=== PATIENT | male | born 1970 | race African-American/Black ===

== ENCOUNTER 2017-08-20 15:59 | Inpatient (IN) | payer MEDICARE, OTHER ==
[~2017-08-20] VITALS: Ht 190.5 cm; Wt 123.0 kg
[2017-08-20] MEDS ORDERED: LEVOFLOXACIN 500MG 100 ML IV ONE (16:30)
[2017-08-20] MEDS ORDERED: DILTIAZEM HCL 25 MG/5 ML VIAL IV ONE (16:42)
[2017-08-20 17:15] LABS: Basophils # (auto) 0 uL; Basophils % (auto) 0.1 % (0.0-2.0); Eosinophils # (auto) 0 uL; Hematocrit 29.8 % (41.0-53.0); Hemoglobin 9.4 g/dL (13.5-17.5); Lymphocytes # (auto) 0.5 uL; Lymphocytes % (auto) 11.2 % (10.0-50.0); Mean Corpuscular Hemoglobin 29.2 pg (28.0-32.0); Mean Corpuscular Hgb Conc. 31.6 g/dL (32.0-36.0); Mean Corpuscular Volume 92.5 fL (80.0-100.0); Monocytes # (auto) 0.4 uL; Monocytes % (auto) 9.1 % (0.0-12.0); Neutrophils # (auto) 3.5 uL; Neutrophils % (auto) 79.6 % (37.0-80.0); Nucleated Red Blood Cells % 2.4 %; Platelet Count (auto) 171 10^3/uL (140-450); Red Blood Cells 3.22 10^6/uL (4.5-5.90); White Blood Cell 4.4 10^3/uL (4.4-10.8)
[2017-08-20] MEDS ORDERED: HYDROmorphone HCL 2 MG/ML VL IV ONE (17:30)
[2017-08-20] MEDS ORDERED: ONDANSETRON HCL 4 MG/2 ML VIAL IV ONE (17:30)
[2017-08-20 17:32] LABS: Albumin 1.8 g/dL (3.4-5.0); BUN/Creatinine Ratio 26.1; Calcium 8.3 mg/dL (8.5-10.1); Magnesium 1.5 mg/dL (1.6-2.6)
[2017-08-20 17:35] LABS: Lactic Acid w/Reflex 7.1 mmol/L (0.4-2.0)
[2017-08-20 17:39] LABS: Bilirubin, Total 0.5 mg/dL (0.2-1.0); Total Protein 4.8 g/dL (6.4-8.2)
[2017-08-20] MEDS ORDERED: SODIUM BICARBONATE 8.4% INJ 50ML SYRINGE ONE (17:50)
[2017-08-20] MEDS ORDERED: DEXTROSE 50% SYRINGE 50 ML IV ONE (17:50)
[2017-08-20] MEDS ORDERED: InsuLIN REG 1unit/0.01ml Soln (100units/ml) IV ONE (18:00)
[2017-08-20] MEDS ORDERED: CALCIUM GLUC 4.65meq/50ml D5AE 50 ML IV ONE (18:00)
[2017-08-20] MEDS ORDERED: DEXTROSE (50%) 50ML SYRG IV ONE (18:00)
[2017-08-20] MEDS ORDERED: SODIUM BICARBONATE 8.4 % INJ 50ML VIAL IV ONE (18:00)
[2017-08-20 18:06] LABS: INR 1.08 (0.9-1.15); Prothrombin Time 11.8 sec (9.37-12.3)
[2017-08-20] MEDS ORDERED: ETOMIDATE (2MG/ML) 20ML VIAL IV ONE ×2 (18:15→18:16)
[2017-08-20] MEDS ORDERED: SUCCINYLCHOLINE CHLORIDE 20 MG/ML 10ML VIAL IV ONE ×2 (18:15→18:16)
[2017-08-20] MEDS ORDERED: PROPOFOL 100 ML IV ONE (18:16)
[2017-08-20] MEDS: PROPOFOL 100 ML IV SCH ×2 (18:25→20:32)
[2017-08-20] MEDS ORDERED: SODIUM CHLORIDE 0.9% 1,000 ML IV ONE (18:30)
[2017-08-20] MEDS: fentaNYL Drip 2500mCg/250mlNS 250 ML IV SCH (19:20)
[2017-08-20] MEDS ORDERED: fentaNYL Drip 2500mCg/250mlNS 250 ML IV ONE (19:23)
[2017-08-20] MEDS ORDERED: NOREPINEPHRINE 8 MG/250ML KIT 250 ML IV ONE (19:25)
[2017-08-20] MEDS ORDERED: ACETAMINOPHEN 650 mg PER 20 mL UD GT ONE (19:30)
[2017-08-20] MEDS ORDERED: ONDANSETRON HCL 4 MG/2 ML VIAL IV PRN (19:45)
[2017-08-20] MEDS ORDERED: PIPERACILLIN-TAZOB 3.375GM 50 ML IV ONE (19:45)
[2017-08-20] MEDS ORDERED: PROPOFOL 10 MG/ML 20 ML IV ONE (19:45)
[2017-08-20] MEDS ORDERED: MORPHINE SULF INJ 2 MG/ML SYRINGE 1ML IV PRN ×2 (19:45)
[2017-08-20] MEDS ORDERED: NITROGLYCERIN 0.4 MG SL TAB SL PRN (19:45)
[2017-08-20] MEDS ORDERED: VANCOMYCIN PER PHARMACY 0 MG IV SCH (19:45)
[2017-08-20] MEDS: NOREPINEPHRINE 8 MG/250ML KIT 250 ML IV SCH (19:47)
[2017-08-20] MEDS: SODIUM CHLORIDE 0.9% 1,000 ML IV SCH (20:00)
[2017-08-20 20:23] VITALS: BP 100/56
[2017-08-20] MEDS ORDERED: LEVOFLOXACIN 750MG 150 ML IV ONE (20:45)
[2017-08-20] MEDS ORDERED: VANCOMYCIN 1GM/250ML 250 ML IV ONE (20:45)
[2017-08-20] MEDS: MAGNESIUM SULFATE 1GM/100ML 100 ML IV SCH ×4 (20:47→23:00)
[2017-08-20] MEDS: ENOXAPARIN SOD 120 MG/0.8 ML SYRINGE SC SCH (20:47)
[2017-08-20 20:59] LABS: CRP High Sensitivity 10.6 mg/dL (< 0.3)
[2017-08-20] MEDS: ASPirin 81 mg TAB NG SCH (23:53)
[2017-08-21] VITALS (11 sets, daily range): BP systolic 90–110; BP diastolic 53–70
[2017-08-21 00:48] LABS: Amphetamine Screen, Urine NEGATIVE (NEGATIVE); Barbiturate Scree,Urine NEGATIVE (NEGATIVE); Cannabinoid Screen, Urine NEGATIVE (NEGATIVE); Cocaine Screen, Urine NEGATIVE (NEGATIVE); Opiate Scree,Urine POSITIVE (NEGATIVE); Phencyclidine Screen, Urine NEGATIVE (NEGATIVE)
[2017-08-21 00:49] LABS: Urine Bacteria MANY /hpf (None Seen); Urine Blood 3+ /uL (Negative); Urine Hyaline Cast FEW /lpf (0 - 2); Urine Mucus FEW (None Seen); Urine Specific Gravity 1.014 (1.001-1.035); Urine WBC 28 /hpf (0 - 3)
[2017-08-21 00:56] LABS: Benzodiazephine Screen, Urine NEGATIVE (NEGATIVE)
[2017-08-21 01:06] LABS: Hemoglobin 9.4 g/dL (13.5-17.5)
[2017-08-21 01:07] LABS: Hematocrit 29.6 % (41.0-53.0); Mean Corpuscular Hemoglobin 29.8 pg (28.0-32.0); Mean Corpuscular Hgb Conc. 31.6 g/dL (32.0-36.0); Mean Corpuscular Volume 94.4 fL (80.0-100.0); Platelet Count (auto) 139 10^3/uL (140-450); Red Blood Cells 3.14 10^6/uL (4.5-5.90)
[2017-08-21 01:14] LABS: Red Cell Distribution Width 23.8 % (11.8-14.3); White Blood Cell 1.1 10^3/uL (4.4-10.8)
[2017-08-21 01:27] LABS: Albumin 1.4 g/dL (3.4-5.0); BUN/Creatinine Ratio 22.5; Calcium 7.7 mg/dL (8.5-10.1)
[2017-08-21 01:30] LABS: Total Protein 4.5 g/dL (6.4-8.2)
[2017-08-21] MEDS ORDERED: VASOPRESSIN 20 UNIT/ML ONE (02:44)
[2017-08-21] MEDS: VASOPRESSIN 50 UNITS in D5W 5% 247.5 ML IV SCH ×2 (03:00→23:00)
[2017-08-21 03:25] LABS: Basophils % (manual) 0 (0.0-2.0); Blast Cells 0; Eosinophils % (manual) 0 (0-7); Promyelocytes % 0; Reactive Lymphocytes 0
[2017-08-21] MEDS: SODIUM CHLORIDE 0.9% 1,000 ML IV SCH ×3 (03:38→19:41)
[2017-08-21] MEDS ORDERED: IBUPROFEN 100MG/5ML ORAL SUSP 100 MG/5 ML UD GT ONE (03:45)
[2017-08-21] MEDS ORDERED: ACETAMINOPHEN 650 mg PER 20 mL UD PO ONE (03:45)
[2017-08-21 03:52] LABS: Lymphocytes % (manual) 20 (10.0-50.0); Metamyelocytes % 6; Monocytes % (manual) 2 (0-12); Myelocytes % 11
[2017-08-21 03:53] LABS: Band Neutrophils % (manual) 27
[2017-08-21] MEDS ORDERED: DEXTROSE (50%) 50ML SYRG IV ONE ×2 (04:00→05:45)
[2017-08-21 04:14] LABS: Basophils # (auto) 0 uL; Basophils % (auto) 0.5 % (0.0-2.0); Eosinophils # (auto) 0 uL; Hemoglobin 9.2 g/dL (13.5-17.5); Lymphocytes # (auto) 0.4 uL; Lymphocytes % (auto) 17.2 % (10.0-50.0); Mean Corpuscular Hemoglobin 30.3 pg (28.0-32.0); Mean Corpuscular Hgb Conc. 32.9 g/dL (32.0-36.0); Mean Corpuscular Volume 92.3 fL (80.0-100.0); Monocytes # (auto) 0.1 uL; Neutrophils # (auto) 1.8 uL; Neutrophils % (auto) 78.3 % (37.0-80.0); Platelet Count (auto) 127 10^3/uL (140-450); Red Blood Cells 3.03 10^6/uL (4.5-5.90); White Blood Cell 2.2 10^3/uL (4.4-10.8)
[2017-08-21 04:21] LABS: Nucleated Red Blood Cells % 4.2 %; Red Cell Distribution Width 23.3 % (11.8-14.3)
[2017-08-21 04:28] LABS: Calcium 7.1 mg/dL (8.5-10.1); Magnesium 2.1 mg/dL (1.6-2.6); Phosphorus 5.1 mg/dL (2.5-4.90)
[2017-08-21 05:25] LABS: Potassium 6.9 mmol/L (3.5-5.1)
[2017-08-21] MEDS ORDERED: SODIUM BICARBONATE 50ML VIAL 50 ML in SOD CHL 0.45% 1,000 ML IV SCH (05:45)
[2017-08-21] MEDS ORDERED: SODIUM POLYSTYRENE SULF 15GM/60ML SUSP NG ONE (05:45)
[2017-08-21] MEDS ORDERED: InsuLIN REG 1unit/0.01ml Soln (100units/ml) IV ONE (05:45)
[2017-08-21] MEDS ORDERED: SODIUM BICARBONATE 8.4 % INJ 50ML VIAL IV ONE ×2 (05:45→09:15)
[2017-08-21] MEDS ORDERED: CALCIUM GLUC 4.65meq/50ml D5AE 50 ML IV ONE (05:45)
[2017-08-21] MEDS ORDERED: ALBUTEROL SULF 2.5 MG/0.5ML(0.5%) NEB SOLN NEB ONE (05:45)
[2017-08-21] MEDS ORDERED: ALBUTEROL SULF 2.5 MG/0.5ML(0.5%) NEB SOLN ONE (05:46)
[2017-08-21] MEDS ORDERED: SODIUM BICARBONATE 8.4% INJ 50ML SYRINGE ONE (07:38)
[2017-08-21] MEDS: SODIUM BICARBONATE 50ML VIAL 100 ML in SOD CHL 0.45% 1,000 ML IV SCH ×2 (08:00→21:02)
[2017-08-21] MEDS: fentaNYL Drip 2500mCg/250mlNS 250 ML IV SCH (08:40)
[2017-08-21] MEDS: ASPirin 81 mg TAB NG SCH (10:00)
[2017-08-21] MEDS: ENOXAPARIN SOD 120 MG/0.8 ML SYRINGE SC SCH ×2 (10:00→22:00)
[2017-08-21] MEDS: PIPERACILLIN-TAZOB 3.375GM 50 ML IV SCH ×3 (11:00→23:30)
[2017-08-21] MEDS: NOREPINEPHRINE 8 MG/250ML KIT 250 ML IV SCH (12:00)
[2017-08-21] MEDS: LINEZOLID 600MG/300ML 300 ML IV SCH (13:00)
[2017-08-21 17:25] LABS: Basophils # (auto) 0 uL; Basophils % (auto) 0.8 % (0.0-2.0); Eosinophils # (auto) 0 uL; Eosinophils % (auto) 0.8 % (0.0-7.0); Hemoglobin 8.9 g/dL (13.5-17.5); Lymphocytes # (auto) 0.8 uL; Lymphocytes % (auto) 15.5 % (10.0-50.0); Mean Corpuscular Hemoglobin 30.3 pg (28.0-32.0); Mean Corpuscular Hgb Conc. 31.8 g/dL (32.0-36.0); Mean Corpuscular Volume 95.1 fL (80.0-100.0); Monocytes # (auto) 0.3 uL; Monocytes % (auto) 5.9 % (0.0-12.0); Neutrophils # (auto) 3.8 uL; Nucleated Red Blood Cells % 2.3 %; Platelet Count (auto) 67 10^3/uL (140-450); Red Blood Cells 2.95 10^6/uL (4.5-5.90); White Blood Cell 4.9 10^3/uL (4.4-10.8)
[2017-08-21 17:42] LABS: Albumin 1.2 g/dL (3.4-5.0); BUN/Creatinine Ratio 18.4; Bilirubin, Total 1.2 mg/dL (0.2-1.0); Calcium 6.5 mg/dL (8.5-10.1); Magnesium 2.4 mg/dL (1.6-2.6); Phosphorus 7.6 mg/dL (2.5-4.90); Red Cell Distribution Width 23.7 % (11.8-14.3); Total Protein 4.4 g/dL (6.4-8.2)
[2017-08-21 18:33] LABS: Potassium 5.9 mmol/L (3.5-5.1)
[2017-08-21] MEDS ORDERED: SODIUM CHLORIDE 0.9% 1,000 ML IV ONE (19:00)
[2017-08-21] MEDS: ALBUMIN 25% 100 ML IV SCH ×2 (19:39→20:15)
[2017-08-21] MEDS ORDERED: CEFEPIME HYDROCHLORIDE 2 GM in SODIUM CHL 0.9% 50 ML IV SCH (20:00)
[2017-08-21] MEDS ORDERED: PHENYLEPHRINE IV 250 ML IV ONE (20:31)
[2017-08-21] MEDS: PHENYLEPHRINE INJ 20 MG in D5W 5% 248 ML IV SCH (21:02)
[2017-08-22] VITALS (31 sets, daily range): BP systolic 86–151; BP diastolic 50–94
[2017-08-22] MEDS ORDERED: PHENYLEPHRINE IV 250 ML IV ONE ×3 (00:01→05:31)
[2017-08-22 00:17] LABS: INR 2.12 (0.9-1.15); Partial Thromboplastin Time 65.3 sec (22.64-33.71); Prothrombin Time 23.3 sec (9.37-12.3)
[2017-08-22 00:22] LABS: Lactic Acid w/Reflex 7.3 mmol/L (0.4-2.0)
[2017-08-22] MEDS: LINEZOLID 600MG/300ML 300 ML IV SCH ×2 (01:45→14:20)
[2017-08-22] MEDS: PHENYLEPHRINE INJ 20 MG in D5W 5% 248 ML IV SCH ×2 (02:00→12:48)
[2017-08-22] MEDS: PROPOFOL 100 ML IV SCH ×3 (02:15→23:46)
[2017-08-22] MEDS: SODIUM CHLORIDE 0.9% 1,000 ML IV SCH ×4 (04:06→21:54)
[2017-08-22] MEDS: PIPERACILLIN-TAZOB 3.375GM 50 ML IV SCH ×2 (05:01→12:21)
[2017-08-22] MEDS ORDERED: HYDROmorphone HCL 2 MG/ML VL IV PRN (07:00)
[2017-08-22 07:02] LABS: Hemoglobin 8.6 g/dL (13.5-17.5); Mean Corpuscular Hemoglobin 31.1 pg (28.0-32.0); Mean Corpuscular Hgb Conc. 33.4 g/dL (32.0-36.0); White Blood Cell 10.9 10^3/uL (4.4-10.8)
[2017-08-22 07:04] LABS: Hematocrit 25.8 % (41.0-53.0); Mean Corpuscular Volume 93.2 fL (80.0-100.0); Platelet Count (auto) 52 10^3/uL (140-450); Red Blood Cells 2.77 10^6/uL (4.5-5.90)
[2017-08-22 07:05] LABS: Red Cell Distribution Width 23.9 % (11.8-14.3)
[2017-08-22 07:06] LABS: Basophils % (manual) 0 (0.0-2.0); Blast Cells 0; Eosinophils % (manual) 0 (0-7); Metamyelocytes % 0; Myelocytes % 0; Promyelocytes % 0; Reactive Lymphocytes 0
[2017-08-22 07:16] LABS: INR 1.63 (0.9-1.15); Partial Thromboplastin Time 54.8 sec (22.64-33.71); Prothrombin Time 17.8 sec (9.37-12.3)
[2017-08-22 07:45] LABS: Albumin 1.7 g/dL (3.4-5.0); BUN/Creatinine Ratio 13.8; Bilirubin, Total 1.9 mg/dL (0.2-1.0); Calcium 6.4 mg/dL (8.5-10.1); Total Protein 4.8 g/dL (6.4-8.2)
[2017-08-22 07:52] LABS: Potassium 6.3 mmol/L (3.5-5.1)
[2017-08-22] MEDS: NOREPINEPHRINE 8 MG/250ML KIT 250 ML IV SCH ×4 (07:52→21:54)
[2017-08-22 07:56] LABS: Band Neutrophils % (manual) 32; Lymphocytes % (manual) 8 (10.0-50.0); Monocytes % (manual) 10 (0-12)
[2017-08-22] MEDS: ASPirin 81 mg TAB NG SCH (10:00)
[2017-08-22] MEDS: ENOXAPARIN SOD 120 MG/0.8 ML SYRINGE SC SCH ×2 (10:00→21:54)
[2017-08-22] MEDS: VASOPRESSIN 50 UNITS in D5W 5% 247.5 ML IV SCH (10:08)
[2017-08-22] MEDS ORDERED: CEFEPIME HYDROCHLORIDE 2 GM in SODIUM CHL 0.9% 50 ML IV SCH (10:55)
[2017-08-22] MEDS: fentaNYL Drip 2500mCg/250mlNS 250 ML IV SCH (13:28)
[2017-08-22] MEDS ORDERED: GENTAMICIN IV SCH (15:00)
[2017-08-22] MEDS ORDERED: EPOETIN ALFA 10,000 UNIT/1 ML VIAL IV ONE (15:00)
[2017-08-22] MEDS ORDERED: ERTAPENEM SOD 1 GM INJ VIAL IM SCH (15:45)
[2017-08-22] MEDS: SODIUM BICARBONATE 50ML VIAL 100 ML in SOD CHL 0.45% 1,000 ML IV SCH ×2 (17:17→20:04)
[2017-08-22] MEDS: PHENYLEPHRINE INJ 40 MG in SODIUM CHL 0.9% 250 ML IV SCH (17:28)
[2017-08-22] MEDS: ERTAPENEM SOD IV SCH (17:35)
[2017-08-22] MEDS: SODIUM CHL 0.9% IV SCH (17:35)
[2017-08-22 22:37] LABS: Hematocrit 21.3 % (41.0-53.0); Hemoglobin 7.6 g/dL (13.5-17.5); Mean Corpuscular Hemoglobin 32.1 pg (28.0-32.0); Mean Corpuscular Hgb Conc. 35.8 g/dL (32.0-36.0); Mean Corpuscular Volume 89.7 fL (80.0-100.0); Platelet Count (auto) 30 10^3/uL (140-450); Red Blood Cells 2.38 10^6/uL (4.5-5.90); White Blood Cell 6.8 10^3/uL (4.4-10.8)
[2017-08-22 22:42] LABS: Red Cell Distribution Width 23.2 % (11.8-14.3)
[2017-08-22 22:43] LABS: Basophils % (manual) 0 (0.0-2.0); Blast Cells 0; Eosinophils % (manual) 0 (0-7); Myelocytes % 0; Promyelocytes % 0
[2017-08-22 23:08] LABS: Albumin 1.5 g/dL (3.4-5.0); BUN/Creatinine Ratio 12.9; Bilirubin, Total 2.2 mg/dL (0.2-1.0); Calcium 6.2 mg/dL (8.5-10.1)
[2017-08-22 23:15] LABS: Total Protein 4.6 g/dL (6.4-8.2)
[2017-08-22] MEDS ORDERED: VASOPRESSIN 20 UNIT/ML ONE (23:49)
[2017-08-23] VITALS (96 sets, daily range): BP systolic 88–152; BP diastolic 47–88
[2017-08-23] MEDS: LINEZOLID 600MG/300ML 300 ML IV SCH ×2 (01:21→13:13)
[2017-08-23] MEDS: SODIUM BICARBONATE 50ML VIAL 100 ML in SOD CHL 0.45% 1,000 ML IV SCH ×2 (03:47→12:01)
[2017-08-23] MEDS: PROPOFOL 100 ML IV SCH ×2 (03:48→21:00)
[2017-08-23] MEDS: fentaNYL Drip 2500mCg/250mlNS 250 ML IV SCH (03:48)
[2017-08-23] MEDS: PHENYLEPHRINE INJ 40 MG in SODIUM CHL 0.9% 250 ML IV SCH (05:29)
[2017-08-23] MEDS: NOREPINEPHRINE 8 MG/250ML KIT 250 ML IV SCH (06:00)
[2017-08-23] MEDS ORDERED: PRE5T PO (07:17)
[2017-08-23] MEDS ORDERED: FURO40TA PO (07:17)
[2017-08-23] MEDS ORDERED: NIFE60TA59 PO (07:17)
[2017-08-23 08:25] LABS: Band Neutrophils % (manual) 13; Lymphocytes % (manual) 12 (10.0-50.0); Monocytes % (manual) 6 (0-12)
[2017-08-23 08:26] LABS: Metamyelocytes % 1; Reactive Lymphocytes 1
[2017-08-23] MEDS: ASPirin 81 mg TAB NG SCH (10:00)
[2017-08-23] MEDS: ENOXAPARIN SOD 120 MG/0.8 ML SYRINGE SC SCH (10:00)
[2017-08-23] MEDS ORDERED: PANTOPRAZOLE 40 MG/10 ML VIAL IV ONE (11:15)
[2017-08-23] MEDS ORDERED: HYDROmorphone HCL 2 MG/ML VL IV PRN (11:15)
[2017-08-23] MEDS: ERTAPENEM SOD IV SCH (12:01)
[2017-08-23] MEDS: SODIUM CHL 0.9% IV SCH (12:01)
[2017-08-23] MEDS ORDERED: IBRU1CAP PO (12:10)
[2017-08-23 13:05] LABS: Basophils # (auto) 0 uL; Eosinophils # (auto) 0 uL; Hemoglobin 8.1 g/dL (13.5-17.5); Mean Corpuscular Hgb Conc. 36.2 g/dL (32.0-36.0)
[2017-08-23 13:07] LABS: Basophils % (auto) 0.3 % (0.0-2.0); Eosinophils % (auto) 0.3 % (0.0-7.0); Hematocrit 22.4 % (41.0-53.0); Lymphocytes # (auto) 0.4 uL; Lymphocytes % (auto) 8.2 % (10.0-50.0); Mean Corpuscular Hemoglobin 31.5 pg (28.0-32.0); Mean Corpuscular Volume 86.8 fL (80.0-100.0); Monocytes # (auto) 0.3 uL; Monocytes % (auto) 6.5 % (0.0-12.0); Neutrophils # (auto) 3.9 uL; Neutrophils % (auto) 84.7 % (37.0-80.0); Nucleated Red Blood Cells % 1.9 %; Platelet Count (auto) 23 10^3/uL (140-450); Red Blood Cells 2.59 10^6/uL (4.5-5.90); White Blood Cell 4.6 10^3/uL (4.4-10.8)
[2017-08-23 13:20] LABS: Albumin 1.5 g/dL (3.4-5.0); BUN/Creatinine Ratio 11.8; Bilirubin, Total 2.7 mg/dL (0.2-1.0); Calcium 6.3 mg/dL (8.5-10.1); Potassium 4.3 mmol/L (3.5-5.1)
[2017-08-23 13:30] LABS: Total Protein 4.7 g/dL (6.4-8.2)
[2017-08-23] MEDS: ACETAMINOPHEN 325 MG TAB PO PRN (20:01)
[2017-08-23] MEDS: ALBUMIN 25% 100 ML IV SCH (21:56)
[2017-08-24] VITALS (108 sets, daily range): BP systolic 75–141; BP diastolic 34–85
[2017-08-24] MEDS: VASOPRESSIN 50 UNITS in D5W 5% 247.5 ML IV SCH (01:00)
[2017-08-24] MEDS: LINEZOLID 600MG/300ML 300 ML IV SCH ×2 (01:04→16:40)
[2017-08-24] MEDS: SODIUM BICARBONATE 50ML VIAL 100 ML in SOD CHL 0.45% 1,000 ML IV SCH (01:40)
[2017-08-24 03:50] LABS: Hematocrit 19.8 % (41.0-53.0); Red Blood Cells 2.27 10^6/uL (4.5-5.90); White Blood Cell 2.1 10^3/uL (4.4-10.8)
[2017-08-24 03:54] LABS: Mean Corpuscular Hemoglobin 30.9 pg (28.0-32.0); Mean Corpuscular Hgb Conc. 35.6 g/dL (32.0-36.0); Platelet Count (auto) 22 10^3/uL (140-450)
[2017-08-24 04:02] LABS: Red Cell Distribution Width 22.2 % (11.8-14.3)
[2017-08-24 04:03] LABS: Basophils % (manual) 0 (0.0-2.0); Blast Cells 0; Eosinophils % (manual) 0 (0-7); Promyelocytes % 0; Reactive Lymphocytes 0
[2017-08-24 04:22] LABS: Lactic Acid w/Reflex 3.5 mmol/L (0.4-2.0)
[2017-08-24 04:24] LABS: Albumin 1.7 g/dL (3.4-5.0); BUN/Creatinine Ratio 11.6; Bilirubin, Total 2.9 mg/dL (0.2-1.0); Calcium 6.8 mg/dL (8.5-10.1); Total Protein 4.8 g/dL (6.4-8.2)
[2017-08-24 05:00] LABS: Band Neutrophils % (manual) 19; Lymphocytes % (manual) 9 (10.0-50.0); Metamyelocytes % 1; Monocytes % (manual) 9 (0-12); Myelocytes % 1
[2017-08-24] MEDS: ALBUMIN 25% 100 ML IV SCH ×3 (06:04→22:00)
[2017-08-24] MEDS: NOREPINEPHRINE 8 MG/250ML KIT 250 ML IV SCH ×2 (08:30→16:00)
[2017-08-24] MEDS ORDERED: ENOXAPARIN SOD 30 MG/0.3 ML SYRINGE SC SCH (10:00)
[2017-08-24] MEDS ORDERED: SODIUM CHL 0.9% 1000 ML BAG XX ONE (10:00)
[2017-08-24] MEDS ORDERED: AMIKACIN 0 ML IV SCH (11:45)
[2017-08-24] MEDS ORDERED: AMIKACIN IV ONE (14:00)
[2017-08-24] MEDS ORDERED: D5W 5% IV ONE (14:00)
[2017-08-24] MEDS: PANTOPRAZOLE 40 MG/10 ML VIAL IV SCH (15:10)
[2017-08-24] MEDS: SODIUM CHL 0.9% IV SCH (16:40)
[2017-08-24] MEDS: ERTAPENEM SOD IV SCH (16:40)
[2017-08-24] MEDS: fentaNYL Drip 2500mCg/250mlNS 250 ML IV SCH (16:50)
[2017-08-25] VITALS (107 sets, daily range): BP systolic 89–139; BP diastolic 45–81
[2017-08-25] MEDS: VASOPRESSIN 50 UNITS in D5W 5% 247.5 ML IV SCH (01:00)
[2017-08-25] MEDS: LINEZOLID 600MG/300ML 300 ML IV SCH ×2 (01:10→12:54)
[2017-08-25 03:32] LABS: Basophils # (auto) 0 uL; Eosinophils # (auto) 0 uL; Lymphocytes # (auto) 0.3 uL; Neutrophils # (auto) 0.9 uL
[2017-08-25 03:36] LABS: Basophils % (auto) 1.1 % (0.0-2.0); Eosinophils % (auto) 1.8 % (0.0-7.0); Hematocrit 19.7 % (41.0-53.0); Lymphocytes % (auto) 20.7 % (10.0-50.0); Mean Corpuscular Hemoglobin 29.5 pg (28.0-32.0); Mean Corpuscular Hgb Conc. 33.3 g/dL (32.0-36.0); Mean Corpuscular Volume 88.7 fL (80.0-100.0); Monocytes # (auto) 0.2 uL; Monocytes % (auto) 10.6 % (0.0-12.0); Neutrophils % (auto) 65.8 % (37.0-80.0); Nucleated Red Blood Cells % 0.6 %; Red Blood Cells 2.22 10^6/uL (4.5-5.90)
[2017-08-25 03:49] LABS: BUN/Creatinine Ratio 10.5; Bilirubin, Total 2.8 mg/dL (0.2-1.0); Calcium 7.2 mg/dL (8.5-10.1); Potassium 3.4 mmol/L (3.5-5.1); Total Protein 4.8 g/dL (6.4-8.2)
[2017-08-25 04:18] LABS: Hemoglobin 6.5 g/dL (13.5-17.5); Red Cell Distribution Width 20.1 % (11.8-14.3); White Blood Cell 1.4 10^3/uL (4.4-10.8)
[2017-08-25 04:19] LABS: Platelet Count (auto) 12 10^3/uL (140-450)
[2017-08-25] MEDS: fentaNYL Drip 2500mCg/250mlNS 250 ML IV SCH (05:18)
[2017-08-25] MEDS: ALBUMIN 25% 100 ML IV SCH ×3 (05:46→22:53)
[2017-08-25] MEDS ORDERED: POTASSIUM CHLORIDE 40 MEQ, LIDOCAINE 1% (LOCAL ANESTH.) 4 ML in SODIUM CHL 0.9% 250 ML IV ONE (09:30)
[2017-08-25] MEDS ORDERED: HYDROCORTISONE SOD SUCC 100 MG/2ML INJ VIAL IV SCH (10:00)
[2017-08-25] MEDS ORDERED: metroNIDAZOLE 500MG/100ML 100 ML IV SCH (12:00)
[2017-08-25] MEDS: ERTAPENEM SOD IV SCH (12:53)
[2017-08-25] MEDS: SODIUM CHL 0.9% IV SCH (12:53)
[2017-08-25] MEDS: PANTOPRAZOLE 40 MG/10 ML VIAL IV SCH (12:54)
[2017-08-25] MEDS: METOCLOPRAMIDE HCL 5MG/ml INJ 2ml VIAL IV SCH ×2 (14:00→22:56)
[2017-08-25] MEDS: metroNIDAZOLE 500MG/100ML 100 ML IV SCH ×2 (16:33→23:30)
[2017-08-25] MEDS: FILGRASTIM 480 MCG INJ VIAL SC SCH (16:37)
[2017-08-25] MEDS ORDERED: VANCOMYCIN PER PHARMACY 0 MG IV SCH (17:15)
[2017-08-25] MEDS ORDERED: VANCOMYCIN 1,500 MG in D5W 5% 250 ML IV ONE (18:00)
[2017-08-26] VITALS (108 sets, daily range): BP systolic 82–132; BP diastolic 37–70
[2017-08-26] MEDS: PROPOFOL 100 ML IV SCH ×4 (03:00→18:47)
[2017-08-26 04:38] LABS: Hemoglobin 8.2 g/dL (13.5-17.5)
[2017-08-26 04:40] LABS: Mean Corpuscular Hemoglobin 29.7 pg (28.0-32.0); Mean Corpuscular Hgb Conc. 34.1 g/dL (32.0-36.0); Mean Corpuscular Volume 87.1 fL (80.0-100.0); Red Blood Cells 2.75 10^6/uL (4.5-5.90); Red Cell Distribution Width 19.5 % (11.8-14.3)
[2017-08-26 04:41] LABS: INR 0.99 (0.9-1.15); Partial Thromboplastin Time 33.6 sec (22.64-33.71); Prothrombin Time 10.8 sec (9.37-12.3)
[2017-08-26 04:44] LABS: BUN/Creatinine Ratio 9.9; Calcium 8.8 mg/dL (8.5-10.1); Potassium 3.8 mmol/L (3.5-5.1)
[2017-08-26 04:45] LABS: Platelet Count (auto) 12 10^3/uL (140-450)
[2017-08-26 04:47] LABS: White Blood Cell 1.8 10^3/uL (4.4-10.8)
[2017-08-26 05:09] LABS: Basophils % (manual) 0 (0.0-2.0); Blast Cells 0; Eosinophils % (manual) 0 (0-7); Promyelocytes % 0; Reactive Lymphocytes 0
[2017-08-26 05:15] LABS: Band Neutrophils % (manual) 16; Lymphocytes % (manual) 19 (10.0-50.0); Metamyelocytes % 6; Monocytes % (manual) 12 (0-12); Myelocytes % 2
[2017-08-26] MEDS: ALBUMIN 25% 100 ML IV SCH ×3 (06:10→22:27)
[2017-08-26] MEDS: METOCLOPRAMIDE HCL 5MG/ml INJ 2ml VIAL IV SCH ×3 (06:10→22:00)
[2017-08-26] MEDS: metroNIDAZOLE 500MG/100ML 100 ML IV SCH ×3 (06:35→22:12)
[2017-08-26] MEDS: ERTAPENEM SOD IV SCH (10:51)
[2017-08-26] MEDS: SODIUM CHL 0.9% IV SCH (10:51)
[2017-08-26] MEDS: PANTOPRAZOLE 40 MG/10 ML VIAL IV SCH (10:51)
[2017-08-26] MEDS: FILGRASTIM 480 MCG INJ VIAL SC SCH (10:52)
[2017-08-26] MEDS: Novasource Renal 1 Liter GT SCH (11:00)
[2017-08-26] MEDS: D5W 5% IV SCH (13:00)
[2017-08-26] MEDS: AMIKACIN IV SCH (13:00)
[2017-08-26] MEDS: NOREPINEPHRINE 8 MG/250ML KIT 250 ML IV SCH ×2 (14:22→19:30)
[2017-08-26] MEDS ORDERED: SODIUM BICARBONATE 8.4 % INJ 50ML VIAL IV ONE (16:30)
[2017-08-26] MEDS ORDERED: EPINEPHrine HCL 250 ML IV SCH (16:30)
[2017-08-26] MEDS ORDERED: SODIUM CHLORIDE 0.9% 3,000 ML IV ONE (17:30)
[2017-08-26] MEDS ORDERED: SODIUM BICARBONATE 50ML VIAL 150 ML in SODIUM CHLORIDE 0.9% 1,000 ML IV SCH (17:30)
[2017-08-26] MEDS: fentaNYL Drip 2500mCg/250mlNS 250 ML IV SCH (18:00)
[2017-08-26] MEDS ORDERED: SODIUM CHL 0.9% 1000 ML BAG XX ONE (20:30)
[2017-08-26] MEDS ORDERED: EPOETIN ALFA 10,000 UNIT/1 ML VIAL IV ONE (20:30)
[2017-08-27] VITALS (107 sets, daily range): BP systolic 76–137; BP diastolic 43–81
[2017-08-27 04:15] LABS: Hemoglobin 7.1 g/dL (13.5-17.5); White Blood Cell 2.2 10^3/uL (4.4-10.8)
[2017-08-27 04:17] LABS: Mean Corpuscular Hemoglobin 29.6 pg (28.0-32.0); Mean Corpuscular Hgb Conc. 33.8 g/dL (32.0-36.0); Mean Corpuscular Volume 87.4 fL (80.0-100.0); Red Cell Distribution Width 19.4 % (11.8-14.3)
[2017-08-27 04:38] LABS: Albumin 2.1 g/dL (3.4-5.0); BUN/Creatinine Ratio 9.7; Bilirubin, Total 3.1 mg/dL (0.2-1.0); Calcium 6.6 mg/dL (8.5-10.1); Total Protein 4.6 g/dL (6.4-8.2)
[2017-08-27 05:17] LABS: Platelet Count (auto) 8 10^3/uL (140-450)
[2017-08-27 05:19] LABS: Basophils % (manual) 0 (0.0-2.0); Blast Cells 0; Myelocytes % 0; Promyelocytes % 0; Reactive Lymphocytes 0
[2017-08-27] MEDS: metroNIDAZOLE 500MG/100ML 100 ML IV SCH ×3 (05:57→22:00)
[2017-08-27] MEDS: ALBUMIN 25% 100 ML IV SCH ×3 (05:58→22:18)
[2017-08-27] MEDS: METOCLOPRAMIDE HCL 5MG/ml INJ 2ml VIAL IV SCH ×2 (05:58→14:00)
[2017-08-27] MEDS: fentaNYL Drip 2500mCg/250mlNS 250 ML IV SCH ×3 (05:58→21:00)
[2017-08-27] MEDS: PROPOFOL 100 ML IV SCH ×5 (05:59→23:30)
[2017-08-27 07:08] LABS: Band Neutrophils % (manual) 23; Eosinophils % (manual) 3 (0-7); Lymphocytes % (manual) 11 (10.0-50.0); Metamyelocytes % 3; Monocytes % (manual) 7 (0-12)
[2017-08-27] MEDS ORDERED: POTASSIUM CHL 20MEQ/100ML 100 ML IV ONE (08:00)
[2017-08-27] MEDS: FILGRASTIM 480 MCG INJ VIAL SC SCH (10:22)
[2017-08-27] MEDS: PANTOPRAZOLE 40 MG/10 ML VIAL IV SCH (10:28)
[2017-08-27] MEDS: SODIUM CHL 0.9% IV SCH (10:31)
[2017-08-27] MEDS: ERTAPENEM SOD IV SCH (10:31)
[2017-08-27] MEDS: methylPREDNISolone SOD SUCC 40 MG/ML VL IV SCH ×2 (16:29→22:01)
[2017-08-27] MEDS ORDERED: VANCOMYCIN 1,250 MG in D5W 5% 250 ML IV ONE (18:00)
[2017-08-27] MEDS: Novasource Renal 1 Liter GT SCH (21:00)
[2017-08-27] MEDS: METOCLOPRAMIDE HCL 10 MG TAB PO SCH (22:01)
[2017-08-28] VITALS (107 sets, daily range): BP systolic 91–163; BP diastolic 38–110
[2017-08-28] MEDS: ACETAMINOPHEN 325 MG TAB PO PRN (00:45)
[2017-08-28 05:17] LABS: Hematocrit 26.9 % (41.0-53.0); Hemoglobin 9.1 g/dL (13.5-17.5); Mean Corpuscular Hemoglobin 29.3 pg (28.0-32.0); Mean Corpuscular Volume 86.1 fL (80.0-100.0); Red Blood Cells 3.12 10^6/uL (4.5-5.90); Red Cell Distribution Width 19.7 % (11.8-14.3); White Blood Cell 4.9 10^3/uL (4.4-10.8)
[2017-08-28 05:29] LABS: Platelet Count (auto) 15 10^3/uL (140-450)
[2017-08-28 05:30] LABS: Basophils % (manual) 0 (0.0-2.0); Blast Cells 0; Eosinophils % (manual) 0 (0-7); Myelocytes % 0; Promyelocytes % 0; Reactive Lymphocytes 0
[2017-08-28] MEDS: metroNIDAZOLE 500MG/100ML 100 ML IV SCH ×3 (06:00→21:18)
[2017-08-28 06:03] LABS: Band Neutrophils % (manual) 6; Lymphocytes % (manual) 8 (10.0-50.0); Metamyelocytes % 2; Monocytes % (manual) 1 (0-12)
[2017-08-28 06:26] LABS: BUN/Creatinine Ratio 10.4; Bilirubin, Total 4.8 mg/dL (0.2-1.0); Calcium 8.9 mg/dL (8.5-10.1); Potassium 4.4 mmol/L (3.5-5.1); Total Protein 6.6 g/dL (6.4-8.2)
[2017-08-28] MEDS: PROPOFOL 100 ML IV SCH ×3 (07:00→19:30)
[2017-08-28] MEDS: NOREPINEPHRINE 8 MG/250ML KIT 250 ML IV SCH ×2 (07:46→19:30)
[2017-08-28] MEDS: methylPREDNISolone SOD SUCC 40 MG/ML VL IV SCH ×3 (07:47→21:18)
[2017-08-28] MEDS: METOCLOPRAMIDE HCL 10 MG TAB PO SCH ×3 (07:47→21:19)
[2017-08-28] MEDS: ALBUMIN 25% 100 ML IV SCH ×3 (07:47→21:19)
[2017-08-28] MEDS ORDERED: EPOETIN ALFA 10,000 UNIT/1 ML VIAL IV ONE (09:00)
[2017-08-28] MEDS ORDERED: SODIUM CHL 0.9% 1000 ML BAG XX ONE (09:00)
[2017-08-28] MEDS: AMIKACIN IV SCH (11:00)
[2017-08-28] MEDS: D5W 5% IV SCH (11:00)
[2017-08-28] MEDS ORDERED: TPN PER PHARMACY 0 ML IV SCH (11:45)
[2017-08-28] MEDS: FILGRASTIM 480 MCG INJ VIAL SC SCH (12:18)
[2017-08-28] MEDS: ERTAPENEM SOD IV SCH (12:19)
[2017-08-28] MEDS: PANTOPRAZOLE 40 MG/10 ML VIAL IV SCH (12:19)
[2017-08-28] MEDS: SODIUM CHL 0.9% IV SCH (12:19)
[2017-08-28 14:22] LABS: Magnesium 2.7 mg/dL (1.6-2.6); Phosphorus 3.2 mg/dL (2.5-4.90)
[2017-08-28] MEDS ORDERED: TPN PER PHARMACY IV NR ×5 (20:00)
[2017-08-28] MEDS: fentaNYL Drip 2500mCg/250mlNS 250 ML IV SCH (21:00)
[2017-08-28] MEDS: InsuLIN REG 1unit/0.01ml Soln (100units/ml) SC SCH (23:24)
[2017-08-28] MEDS: ACCU-CHEK COMFORT CURVE STRIP VI SCH (23:24)
[2017-08-29] VITALS (92 sets, daily range): BP systolic 99–134; BP diastolic 54–90
[2017-08-29] MEDS ORDERED: DEXTROSE (50%) 50ML SYRG IV SCH
[2017-08-29 03:57] LABS: Hemoglobin 8.5 g/dL (13.5-17.5); White Blood Cell 7.4 10^3/uL (4.4-10.8)
[2017-08-29 04:04] LABS: Hematocrit 25.4 % (41.0-53.0); Mean Corpuscular Hemoglobin 28.9 pg (28.0-32.0); Mean Corpuscular Hgb Conc. 33.6 g/dL (32.0-36.0); Mean Corpuscular Volume 85.9 fL (80.0-100.0); Red Blood Cells 2.95 10^6/uL (4.5-5.90); Red Cell Distribution Width 19.5 % (11.8-14.3)
[2017-08-29 04:10] LABS: Platelet Count (auto) 17 10^3/uL (140-450)
[2017-08-29 04:11] LABS: Basophils % (manual) 0 (0.0-2.0); Blast Cells 0; Eosinophils % (manual) 0 (0-7); Myelocytes % 0; Promyelocytes % 0; Reactive Lymphocytes 0
[2017-08-29] MEDS: fentaNYL Drip 2500mCg/250mlNS 250 ML IV SCH (04:15)
[2017-08-29] MEDS: PROPOFOL 100 ML IV SCH ×4 (04:15→22:46)
[2017-08-29 04:58] LABS: BUN/Creatinine Ratio 13.4; Potassium 4.2 mmol/L (3.5-5.1)
[2017-08-29 04:59] LABS: Albumin 2.7 g/dL (3.4-5.0); Bilirubin, Total 2.9 mg/dL (0.2-1.0); Calcium 8.6 mg/dL (8.5-10.1); Magnesium 2.9 mg/dL (1.6-2.6); Phosphorus 4.3 mg/dL (2.5-4.90); Total Protein 6.1 g/dL (6.4-8.2)
[2017-08-29 05:23] LABS: Pre Albumin 26.2 mg/dL (20.0-40.0)
[2017-08-29 05:38] LABS: Band Neutrophils % (manual) 5; Metamyelocytes % 2; Monocytes % (manual) 3 (0-12)
[2017-08-29 05:39] LABS: Lymphocytes % (manual) 5 (10.0-50.0)
[2017-08-29] MEDS: ACCU-CHEK COMFORT CURVE STRIP VI SCH ×3 (05:39→17:45)
[2017-08-29] MEDS: methylPREDNISolone SOD SUCC 40 MG/ML VL IV SCH ×3 (05:39→22:47)
[2017-08-29] MEDS: METOCLOPRAMIDE HCL 10 MG TAB PO SCH ×3 (05:39→22:46)
[2017-08-29] MEDS: ALBUMIN 25% 100 ML IV SCH ×3 (05:39→22:48)
[2017-08-29] MEDS: metroNIDAZOLE 500MG/100ML 100 ML IV SCH ×4 (05:39→22:46)
[2017-08-29] MEDS: InsuLIN REG 1unit/0.01ml Soln (100units/ml) SC SCH ×3 (05:45→17:45)
[2017-08-29] MEDS: ERTAPENEM 0.5 GM IV SCH ×2 (09:51)
[2017-08-29] MEDS: SODIUM CHLORIDE 0.9% IV SCH ×2 (09:51)
[2017-08-29] MEDS: PANTOPRAZOLE 40 MG/10 ML VIAL IV SCH (09:51)
[2017-08-29] MEDS: FILGRASTIM 480 MCG INJ VIAL SC SCH (09:51)
[2017-08-29] MEDS: NOREPINEPHRINE 8 MG/250ML KIT 250 ML IV SCH (15:42)
[2017-08-29] MEDS ORDERED: POTASSIUM CHLORIDE IV NR ×6 (20:00)
[2017-08-29] MEDS ORDERED: SODIUM CHLORIDE IV NR ×6 (20:00)
[2017-08-29] MEDS ORDERED: MULTIPLE VITAMIN IV NR ×6 (20:00)
[2017-08-29] MEDS ORDERED: [UNRECOGNIZED DRUG - OTHER] IV NR ×6 (20:00)
[2017-08-30] VITALS (49 sets, daily range): BP systolic 109–175; BP diastolic 63–95
[2017-08-30] MEDS: fentaNYL Drip 2500mCg/250mlNS 250 ML IV SCH ×4 (01:02→19:39)
[2017-08-30] MEDS: PROPOFOL 100 ML IV SCH ×6 (02:25→20:30)
[2017-08-30] MEDS: InsuLIN REG 1unit/0.01ml Soln (100units/ml) SC SCH ×4 (06:00→18:17)
[2017-08-30] MEDS: METOCLOPRAMIDE HCL 10 MG TAB PO SCH ×3 (06:00→22:25)
[2017-08-30] MEDS: ALBUMIN 25% 100 ML IV SCH (06:00)
[2017-08-30] MEDS: methylPREDNISolone SOD SUCC 40 MG/ML VL IV SCH ×3 (06:00→22:25)
[2017-08-30] MEDS: ACCU-CHEK COMFORT CURVE STRIP VI SCH ×4 (06:00→18:13)
[2017-08-30 06:36] LABS: Albumin 3.1 g/dL (3.4-5.0); BUN/Creatinine Ratio 17.5; Bilirubin, Total 2.8 mg/dL (0.2-1.0); Calcium 8.8 mg/dL (8.5-10.1); Phosphorus 5.2 mg/dL (2.5-4.90); Potassium 4.7 mmol/L (3.5-5.1); Total Protein 6.1 g/dL (6.4-8.2)
[2017-08-30] MEDS: FILGRASTIM 480 MCG INJ VIAL SC SCH (10:00)
[2017-08-30] MEDS ORDERED: IV IMM GLOBULIN(IVIG)10%20G/200ML IV SCH (10:00)
[2017-08-30] MEDS: SODIUM CHLORIDE 0.9% IV SCH ×2 (10:01)
[2017-08-30] MEDS: ERTAPENEM 0.5 GM IV SCH ×2 (10:01)
[2017-08-30] MEDS: D5W 5% IV SCH (10:01)
[2017-08-30] MEDS: AMIKACIN IV SCH (10:01)
[2017-08-30] MEDS: PANTOPRAZOLE 40 MG/10 ML VIAL IV SCH (10:01)
[2017-08-30 10:50] LABS: Hemoglobin 9.7 g/dL (13.5-17.5)
[2017-08-30 10:52] LABS: Hematocrit 28.5 % (41.0-53.0); Mean Corpuscular Hemoglobin 29.1 pg (28.0-32.0); Mean Corpuscular Hgb Conc. 34.2 g/dL (32.0-36.0); Mean Corpuscular Volume 85.1 fL (80.0-100.0); Platelet Count (auto) 23 10^3/uL (140-450); Red Blood Cells 3.35 10^6/uL (4.5-5.90); Red Cell Distribution Width 19.7 % (11.8-14.3); White Blood Cell 9.9 10^3/uL (4.4-10.8)
[2017-08-30 11:00] LABS: Basophils % (manual) 0 (0.0-2.0); Eosinophils % (manual) 0 (0-7)
[2017-08-30 11:01] LABS: Blast Cells 0; Myelocytes % 0; Promyelocytes % 0; Reactive Lymphocytes 0
[2017-08-30 11:26] LABS: Band Neutrophils % (manual) 2; Lymphocytes % (manual) 5 (10.0-50.0); Metamyelocytes % 2; Monocytes % (manual) 2 (0-12)
[2017-08-30] MEDS: diphenhdrAMINE HCL 50 MG/1 ML VL IV SCH (12:18)
[2017-08-30] MEDS ORDERED: methylPREDNISolone SOD SUCC 125 MG/2 ML VL IV SCH (12:30)
[2017-08-30] MEDS: IV IMMUNE GLOBULIN 10% 200 ML IV SCH ×4 (13:00→19:39)
[2017-08-30] MEDS ORDERED: AMIKACIN 0 ML IV SCH (13:30)
[2017-08-30] MEDS ORDERED: MORPHINE SULFATE 4 MG/ML SYR/VIAL IV PRN (13:45)
[2017-08-30] MEDS: metroNIDAZOLE 500MG/100ML 100 ML IV SCH ×2 (14:23→22:25)
[2017-08-30] MEDS: ACETAMINOPHEN 325 MG TAB PO PRN ×2 (16:13→21:10)
[2017-08-30] MEDS ORDERED: VANCOMYCIN 1GM/250ML 250 ML IV ONE (18:00)
[2017-08-30] MEDS: NOREPINEPHRINE 8 MG/250ML KIT 250 ML IV SCH (19:30)
[2017-08-30] MEDS ORDERED: TPN PER PHARMACY IV NR ×6 (20:00)
[2017-08-30] MEDS ORDERED: MIDAZOLAM DRIP 50 mg/50mL 50 ML IV SCH (20:30)
[2017-08-30] MEDS: MIDAZOLAM DRIP 50 mg/50mL 50 ML IV SCH (21:09)
[2017-08-31] VITALS (78 sets, daily range): BP systolic 81–146; BP diastolic 41–92
[2017-08-31] MEDS: PROPOFOL 100 ML IV SCH ×4 (03:20→21:00)
[2017-08-31 03:52] LABS: Basophils # (auto) 0 uL; Eosinophils # (auto) 0 uL; Monocytes # (auto) 0.1 uL; Nucleated Red Blood Cells % 1.7 %
[2017-08-31 03:55] LABS: Basophils % (auto) 0.6 % (0.0-2.0); Eosinophils % (auto) 0.3 % (0.0-7.0); Hematocrit 25.9 % (41.0-53.0); Hemoglobin 9.4 g/dL (13.5-17.5); Lymphocytes # (auto) 0.2 uL; Lymphocytes % (auto) 3.9 % (10.0-50.0); Mean Corpuscular Hgb Conc. 36.5 g/dL (32.0-36.0); Mean Corpuscular Volume 84.9 fL (80.0-100.0); Monocytes % (auto) 2.1 % (0.0-12.0); Neutrophils % (auto) 93.1 % (37.0-80.0); Red Blood Cells 3.05 10^6/uL (4.5-5.90); Red Cell Distribution Width 19.6 % (11.8-14.3); White Blood Cell 4.3 10^3/uL (4.4-10.8)
[2017-08-31 04:10] LABS: Albumin 2.6 g/dL (3.4-5.0)
[2017-08-31 04:12] LABS: Platelet Count (auto) 15 10^3/uL (140-450)
[2017-08-31 04:15] LABS: BUN/Creatinine Ratio 23.5
[2017-08-31 04:24] LABS: Bilirubin, Total 3.6 mg/dL (0.2-1.0)
[2017-08-31] MEDS: METOCLOPRAMIDE HCL 10 MG TAB PO SCH (04:59)
[2017-08-31] MEDS: MIDAZOLAM DRIP 50 mg/50mL 50 ML IV SCH ×2 (04:59→08:08)
[2017-08-31] MEDS: methylPREDNISolone SOD SUCC 40 MG/ML VL IV SCH ×3 (04:59→22:00)
[2017-08-31] MEDS: fentaNYL Drip 2500mCg/250mlNS 250 ML IV SCH ×2 (05:00→22:00)
[2017-08-31] MEDS: metroNIDAZOLE 500MG/100ML 100 ML IV SCH (05:10)
[2017-08-31] MEDS: ACCU-CHEK COMFORT CURVE STRIP VI SCH ×4 (06:16→19:12)
[2017-08-31] MEDS: InsuLIN REG 1unit/0.01ml Soln (100units/ml) SC SCH ×4 (06:16→19:41)
[2017-08-31 08:40] LABS: Magnesium 2.5 mg/dL (1.6-2.6)
[2017-08-31] MEDS: PANTOPRAZOLE 40 MG/10 ML VIAL IV SCH (10:00)
[2017-08-31] MEDS ORDERED: ACETAMINOPHEN 325 MG TAB PO PRN (12:30)
[2017-08-31] MEDS: SODIUM CHLORIDE 0.9% IV SCH ×2 (12:38)
[2017-08-31] MEDS: ERTAPENEM 0.5 GM IV SCH ×2 (12:38)
[2017-08-31] MEDS: diphenhdrAMINE HCL 50 MG/1 ML VL IV SCH (12:45)
[2017-08-31] MEDS: IV IMMUNE GLOBULIN 10% 200 ML IV SCH ×4 (13:15→23:30)
[2017-08-31] MEDS ORDERED: SODIUM CHL 0.9% 1000 ML BAG XX ONE (14:00)
[2017-08-31] MEDS: NOREPINEPHRINE 8 MG/250ML KIT 250 ML IV SCH (19:30)
[2017-08-31] MEDS ORDERED: TPN PER PHARMACY IV NR ×5 (20:00)
[2017-09-01] VITALS (104 sets, daily range): BP systolic 78–139; BP diastolic 40–86
[2017-09-01] MEDS: ACCU-CHEK COMFORT CURVE STRIP VI SCH ×4 (00:04→18:07)
[2017-09-01] MEDS: MIDAZOLAM DRIP 50 mg/50mL 50 ML IV SCH (02:50)
[2017-09-01] MEDS: PROPOFOL 100 ML IV SCH ×3 (03:02→19:46)
[2017-09-01 04:38] LABS: Basophils # (auto) 0 uL; Eosinophils # (auto) 0.1 uL; Hemoglobin 9.6 g/dL (13.5-17.5); Monocytes # (auto) 0.1 uL; White Blood Cell 2.3 10^3/uL (4.4-10.8)
[2017-09-01 04:41] LABS: Basophils % (auto) 0.4 % (0.0-2.0); Eosinophils % (auto) 2.2 % (0.0-7.0); Hematocrit 25.7 % (41.0-53.0); Lymphocytes # (auto) 0.3 uL; Lymphocytes % (auto) 13.6 % (10.0-50.0); Mean Corpuscular Hemoglobin 31.5 pg (28.0-32.0); Mean Corpuscular Hgb Conc. 37.4 g/dL (32.0-36.0); Mean Corpuscular Volume 84.3 fL (80.0-100.0); Neutrophils # (auto) 1.8 uL; Neutrophils % (auto) 78.8 % (37.0-80.0); Red Blood Cells 3.05 10^6/uL (4.5-5.90); Red Cell Distribution Width 19.5 % (11.8-14.3)
[2017-09-01 04:49] LABS: INR 1.16 (0.9-1.15); Partial Thromboplastin Time 38.8 sec (22.64-33.71); Prothrombin Time 12.7 sec (9.37-12.3)
[2017-09-01 05:06] LABS: Nucleated Red Blood Cells % 4.3 %
[2017-09-01 05:08] LABS: Albumin 2.2 g/dL (3.4-5.0); Calcium 7.7 mg/dL (8.5-10.1); Platelet Count (auto) 12 10^3/uL (140-450); Potassium 5.5 mmol/L (3.5-5.1)
[2017-09-01 05:10] LABS: BUN/Creatinine Ratio 27.7
[2017-09-01 05:17] LABS: Bilirubin, Total 4.2 mg/dL (0.2-1.0)
[2017-09-01 05:30] LABS: Magnesium 2.3 mg/dL (1.6-2.6); Phosphorus 6.2 mg/dL (2.5-4.90)
[2017-09-01] MEDS: methylPREDNISolone SOD SUCC 40 MG/ML VL IV SCH ×2 (06:30→22:13)
[2017-09-01] MEDS: InsuLIN REG 1unit/0.01ml Soln (100units/ml) SC SCH ×4 (06:30→18:58)
[2017-09-01 06:57] LABS: Pre Albumin 41.7 mg/dL (20.0-40.0)
[2017-09-01 06:59] LABS: Total Protein 6.5 g/dL (6.4-8.2)
[2017-09-01] MEDS ORDERED: VANCOMYCIN 750 MG in D5W 5% 250 ML IV ONE ×2 (08:15→17:00)
[2017-09-01] MEDS: ERTAPENEM 0.5 GM IV SCH ×2 (10:20)
[2017-09-01] MEDS: SODIUM CHLORIDE 0.9% IV SCH ×2 (10:20)
[2017-09-01] MEDS: PANTOPRAZOLE 40 MG/10 ML VIAL IV SCH ×2 (10:25→22:13)
[2017-09-01] MEDS: D5W 5% IV SCH (11:12)
[2017-09-01] MEDS: AMIKACIN IV SCH (11:12)
[2017-09-01] MEDS: fentaNYL Drip 2500mCg/250mlNS 250 ML IV SCH (11:30)
[2017-09-01] MEDS: diphenhdrAMINE HCL 50 MG/1 ML VL IV SCH (12:41)
[2017-09-01] MEDS: IV IMMUNE GLOBULIN 10% 200 ML IV SCH ×4 (13:35→20:40)
[2017-09-01] MEDS ORDERED: methylPREDNISolone SOD SUCC 125 MG/2 ML VL IV ONE (13:45)
[2017-09-01] MEDS: NOREPINEPHRINE 8 MG/250ML KIT 250 ML IV SCH (19:30)
[2017-09-02] VITALS (98 sets, daily range): BP systolic 79–164; BP diastolic 39–94
[2017-09-02] MEDS: ACCU-CHEK COMFORT CURVE STRIP VI SCH ×4 (00:30→19:05)
[2017-09-02] MEDS: InsuLIN REG 1unit/0.01ml Soln (100units/ml) SC SCH ×4 (00:30→19:09)
[2017-09-02 05:15] LABS: Basophils # (auto) 0 uL; Eosinophils # (auto) 0 uL; Monocytes # (auto) 0.2 uL
[2017-09-02 05:16] LABS: Eosinophils % (auto) 1.1 % (0.0-7.0); Hematocrit 21.1 % (41.0-53.0); Hemoglobin 8.2 g/dL (13.5-17.5); Lymphocytes # (auto) 0.4 uL; Lymphocytes % (auto) 21.5 % (10.0-50.0); Mean Corpuscular Hemoglobin 32.7 pg (28.0-32.0); Mean Corpuscular Volume 83.9 fL (80.0-100.0); Neutrophils # (auto) 1.3 uL; Neutrophils % (auto) 66.4 % (37.0-80.0); Red Blood Cells 2.52 10^6/uL (4.5-5.90); Red Cell Distribution Width 19.5 % (11.8-14.3)
[2017-09-02 05:26] LABS: Mean Corpuscular Hgb Conc. 39.1 g/dL (32.0-36.0)
[2017-09-02 05:28] LABS: Platelet Count (auto) 9 10^3/uL (140-450)
[2017-09-02 05:35] LABS: Albumin 1.8 g/dL (3.4-5.0); BUN/Creatinine Ratio 31.6; Calcium 7.1 mg/dL (8.5-10.1)
[2017-09-02 05:43] LABS: Bilirubin, Total 3.9 mg/dL (0.2-1.0)
[2017-09-02 06:21] LABS: Potassium 5.9 mmol/L (3.5-5.1)
[2017-09-02] MEDS ORDERED: ALBUMIN 25% 100 ML IV ONE ×2 (06:30→06:34)
[2017-09-02] MEDS ORDERED: EPOETIN ALFA 10,000 UNIT/1 ML VIAL IV ONE (06:30)
[2017-09-02 08:06] LABS: Total Protein 6.5 g/dL (6.4-8.2)
[2017-09-02] MEDS ORDERED: MORPHINE SULFATE 4 MG/ML SYR/VIAL IV PRN (10:15)
[2017-09-02] MEDS ORDERED: MORPHINE SULFATE 4 MG/ML SYR/VIAL ONE (10:29)
[2017-09-02] MEDS: PANTOPRAZOLE 40 MG/10 ML VIAL IV SCH ×2 (10:50→21:59)
[2017-09-02] MEDS: SODIUM CHLORIDE 0.9% IV SCH ×2 (10:50)
[2017-09-02] MEDS: ERTAPENEM 0.5 GM IV SCH ×2 (10:50)
[2017-09-02] MEDS: methylPREDNISolone SOD SUCC 40 MG/ML VL IV SCH ×2 (10:50→21:59)
[2017-09-02 12:35] LABS: Hepatitis B Surface Antigen Negative (Negative)
[2017-09-02 13:02] LABS: Hepatitis C Antibody Negative (Negative)
[2017-09-02 13:03] LABS: Hepatitis B Core IgM Negative
[2017-09-02 13:04] LABS: Hepatitis A Ab IgM Negative
[2017-09-02] MEDS: fentaNYL Drip 2500mCg/250mlNS 250 ML IV SCH (13:05)
[2017-09-02] MEDS: MIDAZOLAM DRIP 50 mg/50mL 50 ML IV SCH (14:10)
[2017-09-02] MEDS: PROPOFOL 100 ML IV SCH (19:46)
[2017-09-02] MEDS: NOREPINEPHRINE 8 MG/250ML KIT 250 ML IV SCH (21:58)
[2017-09-02] MEDS ORDERED: VASOPRESSIN 20 UNIT/ML ONE (22:20)
[2017-09-02] MEDS ORDERED: EPINEPHrine HCL 0 ML IV ONE (22:25)
[2017-09-03] MEDS ORDERED: SODIUM BICARBONATE 8.4% INJ 50ML SYRINGE IV ONE (04:54)
[2017-09-03] MEDS ORDERED: CALCIUM CHLOR(10%) 100MG/ML 10ML SYRINGE IV ONE (04:54)
[2017-09-03] MEDS ORDERED: EPINEPHrine HCL 1 MG/10 ML SYRG IV ONE (04:54)
== END 2017-09-02 22:24 | disposition expired | DRG 870 ==
LOC: ER 15:59 → EDAGE 15:59 → TELE 16:00 → ICU WEST 08-22 18:47
PROVIDERS: ADMIT Nurse Practitioner Acute Care; ATTEND Internal Medicine
PROC: 5A1955Z Respiratory Ventilation, Greater than 96 Consecutive Hours (ICD-10-PCS; principal; 2017-08-20)
PROC: 0BH17EZ Insertion of Endotracheal Airway into Trachea, Via Natural or Artificial Opening (ICD-10-PCS; 2017-08-20)
PROC: 02HV33Z Insertion of Infusion Device into Superior Vena Cava, Percutaneous Approach (ICD-10-PCS; 2017-08-20)
PROC: 5A1D70Z Performance of Urinary Filtration, Intermittent, Less than 6 Hours Per Day (ICD-10-PCS; 2017-08-21)
PROC: 5A1D70Z Performance of Urinary Filtration, Intermittent, Less than 6 Hours Per Day (ICD-10-PCS; 2017-08-22)
PROC: 30233L1 Transfusion of Nonautologous Fresh Plasma into Peripheral Vein, Percutaneous Approach (ICD-10-PCS; 2017-08-23)
PROC: 30233N1 Transfusion of Nonautologous Red Blood Cells into Peripheral Vein, Percutaneous Approach (ICD-10-PCS; 2017-08-23)
PROC: 30233R1 Transfusion of Nonautologous Platelets into Peripheral Vein, Percutaneous Approach (ICD-10-PCS; 2017-08-23)
PROC: 30233K1 Transfusion of Nonautologous Frozen Plasma into Peripheral Vein, Percutaneous Approach (ICD-10-PCS; 2017-08-23)
PROC: 5A1D70Z Performance of Urinary Filtration, Intermittent, Less than 6 Hours Per Day (ICD-10-PCS; 2017-08-24)
PROC: 5A1D70Z Performance of Urinary Filtration, Intermittent, Less than 6 Hours Per Day (ICD-10-PCS; 2017-08-25)
PROC: 5A1D70Z Performance of Urinary Filtration, Intermittent, Less than 6 Hours Per Day (ICD-10-PCS; 2017-08-27)
PROC: 5A1D70Z Performance of Urinary Filtration, Intermittent, Less than 6 Hours Per Day (ICD-10-PCS; 2017-08-28)
PROC: 5A1D70Z Performance of Urinary Filtration, Intermittent, Less than 6 Hours Per Day (ICD-10-PCS; 2017-08-30)
PROC: 07DQ3ZZ Extraction of Sternum Bone Marrow, Percutaneous Approach (ICD-10-PCS; 2017-08-30)
PROC: 5A1D70Z Performance of Urinary Filtration, Intermittent, Less than 6 Hours Per Day (ICD-10-PCS; 2017-08-31)
PROC: 5A1D70Z Performance of Urinary Filtration, Intermittent, Less than 6 Hours Per Day (ICD-10-PCS; 2017-09-01)
PROC: 5A1D70Z Performance of Urinary Filtration, Intermittent, Less than 6 Hours Per Day (ICD-10-PCS; 2017-09-02)
PROC: 5A12012 Performance of Cardiac Output, Single, Manual (ICD-10-PCS; 2017-09-02)
PROC: 02HV33Z Insertion of Infusion Device into Superior Vena Cava, Percutaneous Approach (ICD-10-PCS; 2017-09-02)
DX: A41.51 Sepsis due to Escherichia coli [E. coli] (principal); I21.A1 Myocardial infarction type 2; J96.00 Acute respiratory failure, unspecified whether with hypoxia or hypercapnia; N17.0 Acute kidney failure with tubular necrosis; M72.6 Necrotizing fasciitis; E43 Unspecified severe protein-calorie malnutrition; R65.21 Severe sepsis with septic shock; J18.9 Pneumonia, unspecified organism; D61.818 Other pancytopenia; N18.6 End stage renal disease; L03.311 Cellulitis of abdominal wall; L03.115 Cellulitis of right lower limb; L03.114 Cellulitis of left upper limb; L03.116 Cellulitis of left lower limb; I13.11 Hypertensive heart and chronic kidney disease without heart failure, with stage 5 chronic kidney disease, or end stage renal disease; N28.0 Ischemia and infarction of kidney; I46.9 Cardiac arrest, cause unspecified; E77.8 Other disorders of glycoprotein metabolism; E83.51 Hypocalcemia; R79.89 Other specified abnormal findings of blood chemistry; E86.0 Dehydration; E88.09 Other disorders of plasma-protein metabolism, not elsewhere classified; G90.8 Other disorders of autonomic nervous system; E87.5 Hyperkalemia; Z16.24 Resistance to multiple antibiotics; Z99.2 Dependence on renal dialysis; Z92.21 Personal history of antineoplastic chemotherapy; Z68.33 Body mass index [BMI] 33.0-33.9, adult; Z85.72 Personal history of non-Hodgkin lymphomas; Z71.3 Dietary counseling and surveillance
CPT/HCPCS: 31500; 36415; 36556; 36600; 70450; 71045; 72125; 73700; 74176; 76705; 80048; 80053; 80074; 80150; 80202; 80307; 81001; 81479; 82040; 82533; 82550; 82805; 82962; 83010; 83605; 83615; 83735; 83880; 84100; 84132; 84478; 84484; 85007; 85025; 85027; 85045; 85097; 85384; 85610; 85652; 85730; 86141; 86850; 86880; 86900; 86901; 86920; 87040; 87070; 87075; 87077; 87081; 87186; 87205; 87400; 87493; 88184; 88185; 88291; 90935; 93971; 94002; 94003; 96361; 96365; 96375; 96376; 99291; C9113; J0171; J0330; J0610; J0885; J1335; J1442; J1459; J1642; J1815; J1956; J2001; J2250; J2405; J2543; J2704; J3010; J3480; J3490; J7060; J7131